=== PATIENT | male | born 1975 ===

== ENCOUNTER 2020-10-18 02:39 | Emergency (ER) | payer SELFPAY ==
[~2020-10-18] VITALS: Ht 190.5 cm; Wt 100.9 kg
[2020-10-18 02:50] VITALS: Ht 190.5 cm; Wt 100.9 kg
[2020-10-18] MEDS ORDERED: NAPROSYN500 MG PO (03:14)
[2020-10-18] MEDS ORDERED: HYDROCODON-ACE1 EAC7 PO (03:14)
[2020-10-18] MEDS ORDERED: CLEOCIN HCL300 MG PO (03:14)
[2020-10-18 03:28] VITALS: BP 126/82
== END 2020-10-18 03:26 | disposition home or self-care (01) ==
LOC: D.ER 02:39
DX: M54.5 Low back pain (principal); K04.7 Periapical abscess without sinus; Z72.0 Tobacco use

== ENCOUNTER 2020-10-18 17:22 | Emergency (ER) | payer SELFPAY ==
[2020-10-18 02:50] VITALS: BMI 27.8
[~2020-10-18 17:22] MED LIST: CLEOCIN HCL300 MG PO; HYDROCODON-ACE1 EAC7 PO; NAPROSYN500 MG PO
== END 2020-10-18 18:51 | disposition left against medical advice (07) ==
LOC: D.ER 17:22
DX: K04.7 Periapical abscess without sinus (principal)